=== PATIENT | female | born 1955 | race Caucasian/White ===

== ENCOUNTER → 2021-11-29 | Outpatient (CLI) | payer OTHER, BC | LOC: HYPER 14:02 | PROVIDERS: ATTEND Emergency Medicine | DX: L89.323 Pressure ulcer of left buttock, stage 3 (principal); R21 Rash and other nonspecific skin eruption; R53.1 Weakness; R26.9 Unspecified abnormalities of gait and mobility; E03.9 Hypothyroidism, unspecified; K21.9 Gastro-esophageal reflux disease without esophagitis; F41.9 Anxiety disorder, unspecified; Z87.891 Personal history of nicotine dependence ==

== ENCOUNTER → 2021-12-08 | Outpatient (CLI) | payer OTHER, BC | LOC: HYPER 10:34 | PROVIDERS: ATTEND Emergency Medicine | DX: L89.323 Pressure ulcer of left buttock, stage 3 (principal); R21 Rash and other nonspecific skin eruption; R53.1 Weakness; R26.9 Unspecified abnormalities of gait and mobility; E03.9 Hypothyroidism, unspecified; K21.9 Gastro-esophageal reflux disease without esophagitis; F41.9 Anxiety disorder, unspecified; Z87.891 Personal history of nicotine dependence ==

== ENCOUNTER → 2021-12-20 | Outpatient (CLI) | payer OTHER, BC | LOC: HYPER 07:54 | PROVIDERS: ATTEND Emergency Medicine | DX: L89.323 Pressure ulcer of left buttock, stage 3 (principal); R21 Rash and other nonspecific skin eruption; R53.1 Weakness; R26.9 Unspecified abnormalities of gait and mobility; E03.9 Hypothyroidism, unspecified; K21.9 Gastro-esophageal reflux disease without esophagitis; F41.9 Anxiety disorder, unspecified; Z87.891 Personal history of nicotine dependence ==